=== PATIENT | male | born 1965 | race Caucasian/White ===

== ENCOUNTER 2021-09-10 01:45 | Emergency (ER) | payer BC ==
[~2021-09-10] VITALS: Ht 167.6 cm; Wt 83.9 kg
[2021-09-10 02:21] VITALS: BP_SYST 137
--- NOTE | 2021-09-10 02:22 | NUR ---
Patient presents to the ER with c/o dental pain in right cheek area. Pain 5/10 at this time. Patient A/Ox4, VSS, ambulatory, resp even and unlabored. Nad noted at this time. Will continue to monitor.
[2021-09-10] MEDS ORDERED: IBUPROFEN 800 MG TABLET PO ONE (02:45)
[2021-09-10] MEDS ORDERED: AMOXICILLIN/CLAVULANATE POTASSIUM 500 MG TABLET PO ONE (02:45)
--- NOTE | 2021-09-10 02:46 | NUR ---
ER MD Duran in waiting room with patient.
[2021-09-10] MEDS ORDERED: IBUP-1971 PO (02:47)
[2021-09-10] MEDS ORDERED: AMOX-423 PO (02:47)
--- NOTE | 2021-09-10 03:00 | NUR ---
Patient given written and verbal discharge instructions and verbalizes understanding. ER MD discussed with patient the results and treatment provided. Patient in stable condition. ID arm band removed. Rx of Ibuprofen and Augmentin given. Patient educated on pain management and to follow up with PMD. Pain Scale 5/10. Opportunity for questions provided and answered. Medication side effect fact sheet provided. Patient A/Ox4, VSS, resp even and unlabored. Nad noted at this time.
[2021-09-10 03:31] VITALS: BP_SYST 137
== END 2021-09-10 03:31 | disposition home or self-care (01) ==
LOC: SED 01:45
DX: K05.10 Chronic gingivitis, plaque induced (principal); K08.89 Other specified disorders of teeth and supporting structures; R51.9 Headache, unspecified; Z79.899 Other long term (current) drug therapy
CPT/HCPCS: 99283